=== PATIENT | female | born 1930 | race Caucasian/White ===

== ENCOUNTER 2017-03-31 20:13 | Inpatient (IN) | payer MEDICARE, OTHER ==
--- NOTE | 2017-03-31 20:22 | ERNOTE ---
Hip Pain HPI - Narrative Date of Service: 03/31/17 - General Time Seen by Provider: 03/31/17 20:14 - History of Present Illness Initial Comments: This is a 86-year-old female who comes to the emergency department complaining of left leg pain. The patient states early this afternoon she was walking into her front room in her house when she slipped on a rug that was on the linoleum. She fell to the ground striking her left hip. He reported severe significant pain. She was unable to get up. EMS was activated and arrived. She was taken to a local emergency department where evaluation demonstrated a left intertrochanteric fracture. The patient denies being on blood thinners. She is brought to our hospital for surgery. Denies numbness or tingling in the foot or extremity. Films were already done as were blood tests - Immun/Allergies/Home Medications Allergies/Adverse Reactions: Allergies Allergy/AdvReac Type Severity Reaction Status Date / Time No Known Allergies Allergy Unverified 03/31/17 20:30 Home Medications: Ambulatory Orders Medication Instructions Recorded Alprazolam [Xanax] 0.25 mg PO QID PRN 03/31/17 Aspirin 81 mg PO DAILY 03/31/17 Atorvastatin Calcium 20 mg PO HS 03/31/17 Chlorthalidone [Hygroton] 12.5 mg PO DAILY 03/31/17 Metoprolol Tartrate 50 mg PO HS 03/31/17 Metoprolol Tartrate 100 mg PO DAILY 03/31/17 glipiZIDE [Glipizide] 10 mg PO BID 03/31/17 metFORMIN HCL [Glucophage] 500 mg PO BIDWM 03/31/17 Review of Systems - Review of Systems Constitutional: Present: no symptoms reported EENTM: Present: no symptoms reported Respiratory: Present: no symptoms reported Cardiology: Present: no symptoms reported Gastrointestinal/Abdominal: Present: no symptoms reported Genitourinary: Present: no symptoms reported Musculoskeletal: Present: joint pain, other Skin: Present: no symptoms reported Neurological: Present: no symptoms reported - left hip Endocrine: Present: no symptoms reported Hematologic/Lymphatic: Present: no symptoms reported All Other Systems: All systems neg except as marked Pain Exam - Physical Exam General Appearance: Present: WD/WN, no apparent distress Eyes, Ears, Nose, Throat Exam: Present: normal ENT inspection, TMs normal, pharynx normal Neck Exam: Present: non-tender, full range of motion Cardiovascular/Respiratory: Present: regular rate, rhythm, no JVD, no respiratory distress Gastrointestinal/Abdominal: Present: normal bowel sounds Back Exam: Present: normal inspection, no vertebral tenderness Extremity Exam: Present: other - the left leg is shortened and externally rotated. Good distal pulse. 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 She has a simpler intertrochanteric fracture. The PA for orthopedics is here at the hospital. He is going to be writing orders to take the patient to the hospital bed. I will not add any orders here in the ER. - VITAL SIGNS Patient's Vital Signs:: I have reviewed the patient's vital signs. Departure - Departure Clinical Impression: Hip fracture Disposition: [facility] Condition: Fair
--- NOTE | 2017-03-31 21:29 | CONS ---
HPI - General Date of Service: 03/31/17 Narrative: Leyla is an 86 y/o female who presents today with left hip pain s/p a mechanical fall in her home this afternoon. Patient comes from [facility] ER with her family, where she was found to have a left intertrochanteric hip fracture. Pt notes that her family had come to visit her and as she tried to get to the door she fell. Pt had immediate pain and has been unable to ambulate since. Pt notes no other significant complaints. PMH includes breast cancer, hysterectomy, gall bladder removal. She did not hit her head when she fell, and had no loss of consciousness. Source: patient, family Exam Limitations: no limitations - History of Present Illness Allergies/Adverse Reactions: Allergies No Known Allergies Allergy (Unverified 03/31/17 20:30) Home Medications: Home Medications Medication Instructions Recorded Last Taken Alprazolam [Xanax] 0.25 mg PO QID PRN 03/31/17 Unknown Aspirin 81 mg PO DAILY 03/31/17 Unknown Atorvastatin Calcium 20 mg PO HS 03/31/17 Unknown Chlorthalidone [Hygroton] 12.5 mg PO DAILY 03/31/17 Unknown Metoprolol Tartrate 50 mg PO HS 03/31/17 Unknown Metoprolol Tartrate 100 mg PO DAILY 03/31/17 Unknown glipiZIDE [Glipizide] 10 mg PO BID 03/31/17 Unknown metFORMIN HCL [Glucophage] 500 mg PO BIDWM 03/31/17 Unknown - Patient's Past Medical History Patient History - Medical: Diabetes Type 2 Insulin Dependent, Osteoarthritis, Renal Disease, Other Patient History - Cardiac/Respiratory: Hypertension, Hyperlipidemia, Sleep Apnea Patient History - Cancer: Breast Patient History - Surgical Procedures: Cholecystectomy Patient History - Other: None - Social History Living Situations: home Psych History: No pertinent hx Smoking Status: Never smoker Alcohol Use: none Drug Use: none - Immunizations Immunizations Up to Date: Yes History of Influenza Vaccine: Yes Physical Examination - Exam Vital Signs: Vital Signs - Last Taken Temp 36.5 C 03/31/17 20:18 Pulse 60 03/31/17 20:54 Resp 18 03/31/17 20:54 BP 113/47 03/31/17 20:54 Pulse Ox 97 03/31/17 20:54 O2 Oxygen Delivery Method Room Air Constitutional: Present: Alert, Cooperative, No distress ENT Exam: Present: hard of hearing Respiratory: Present: no respiratory distress Extremity: Present: other - LLE--> ttp over greater trochanter, SILT, dorsal pedis pulse 2+, 5/5 FHL, EHL, PF, DF - Results and Findings: Narrative: - 86 y/o female left intertrochanteric femur fracture s/p mechanical fall in her home - Discussed conservative vs. surgical treatment of this procedure with her family including, but not limited to infection, bleeding, DVT, stroke, and continued pain. Family wishes to proceed with surgical treatment. Surgical treatment of cephalomedullary nailing of left interochanteric femur fracture on 04/01/[address] Abad. - NWB - NPO at midnight of 03/31 - pain control with IV morphine per medicine - DVT prophy: SCDs - Consent for surgery on 04/[address] Abad - Assessments/Findings (1) Hip fracture Problem: Acute Qualifiers: Encounter type: initial encounter Fracture type: closed Laterality: left Qualified Code(s): S72.002A - Fracture of unspecified part of neck of left femur, initial encounter for closed fracture
[2017-03-31] MEDS: MORPHINE SULFATE 2 MG/ML DISP.SYRIN IV PRN (22:11)
[2017-03-31] MEDS ORDERED: NORMAL SALINE 1,000 ML IV PRN (22:15)
--- NOTE | 2017-03-31 22:29 | HP ---
Chief Complaint - Chief Complaint Date of Service: 03/31/17 Time of Service: 22:16 Chief Complaint: left hip pain and unable to walk History of Present Illness: 86 years old WF adm to the hospital from ER with reports of left hip pain s/p mechanical fall at home. She was transferred from [facility] due to need for orthopedic service. On X-ray hip: Acute comminuted and mild- moderate displaced interrochanteric fracture of the proximal left femur. osteopenia with very mild OA changes at both hip. PMH osteopenia, osteoarthritis, hypertension, sleep apnea,diabetes, gout, lipoma, peripheral neuropathy and hyperlipidemia.Per daughter pt was going to the door when she slipped on the floor and hit her left hip. pt was unable to stand or get to the door so EMS was called and brought pt to outside facility. pt denies dizziness, headaches, head injury or LOC, No chest pain, palpitation, shortness of breath or weakness prior to and after incident. Pt lives alone therefore, Daughter considering [facility] for rehab upon discharge. Plan of care discussed with pt and daughter they verbalized understanding and agrees. - Patient's Past Medical History Patient History - Medical: Diabetes Type 2 Insulin Dependent, Osteoarthritis, Renal Disease, Other - osteopenia, gout, lipoma, [place], macular degenerative disease Patient History - Cardiac/Respiratory: Hypertension, Hyperlipidemia, Sleep Apnea - uses cpap Patient History - Cancer: Breast Patient History - Surgical Procedures: Cataracts, Cholecystectomy, Hysterectomy , Other - radical bilateral mastectomy with lymph nodes removal Patient History - Other: None - Family History Family History:: no untoward family reactions to anesthesia - Family History Mother Family History - Medical: , History Unknown Father Family History - Medical: , History Unknown - Social History Living Situations: alone Psych History: No pertinent hx Smoking Status: Never smoker Alcohol Use: none Drug Use: none - Immunizations Immunizations Up to Date: Yes History of Influenza Vaccine: Yes Review Of Systems (GEN) - Review of Systems Generalized/Overall Review: Present: No Symptoms Reported EENTM: Present: No Symptoms Reported Respiratory: Present: No Symptoms Reported Cardiac: Present: No Symptoms Reported Abdominal: Present: No Symptoms Reported Genitourinary: Present: No Symptoms Reported Musculoskeletal: Present: Joint Pain - left hip, Joint Swelling Neurological: Present: Anxiety Skin: Present: No Symptoms Reported Endocrine: Present: No Symptoms Reported Allergies/Adverse Reactions: Allergies Allergy/AdvReac Type Severity Reaction Status Date / Time No Known Allergies Allergy Unverified 03/31/17 20:30 Home Medications: HOME MEDICATIONS Alprazolam [Xanax] 0.25 mg PO QID PRN 03/31/17 [Last Taken Unknown] Aspirin 81 mg PO DAILY 03/31/17 [Last Taken Unknown] Atorvastatin Calcium 20 mg PO HS 03/31/17 [Last Taken Unknown] Chlorthalidone [Hygroton] 12.5 mg PO DAILY 03/31/17 [Last Taken Unknown] Metoprolol Tartrate 50 mg PO HS 03/31/17 [Last Taken Unknown] Metoprolol Tartrate 100 mg PO DAILY 03/31/17 [Last Taken Unknown] glipiZIDE [Glipizide] 10 mg PO BID 03/31/17 [Last Taken Unknown] metFORMIN HCL [Glucophage] 500 mg PO BIDWM 03/31/17 [Last Taken Unknown] Exam - Exam Vital Signs: Vital Signs - Last Taken Temp 36.5 C 03/31/17 20:18 Pulse 62 03/31/17 21:18 Resp 18 03/31/17 21:18 BP 113/56 03/31/17 21:18 Pulse Ox 96 03/31/17 21:18 Constitutional: Present: Alert, Oriented x3, Cooperative, No distress ENT Exam: Present: hard of hearing Eye Exam: bilateral eye: normal inspection Neck: Present: full range of motion Back Exam: Present: normal inspection Breasts: Present: Other - bilateral mastectomy Respiratory: Present: chest non-tender, lungs clear, normal breath sounds, no respiratory distress Cardiovascular/Chest: Present: normal peripheral pulses, regular rate, rhythm, no chest tenderness, no edema Peripheral Pulses: dorsalis-pedis (R): 3+, dorsalis-pedis (L): 3+ Abdomen: Present: Normal bowel sounds, soft, nontender, nondistended, no rebound tenderness /Rectal: Present: Exam deferred Extremity: Present: lower extremity edema - Left hip, limited ROM. left leg shorter than right Skin Exam: Present: normal color, warm/dry, no cyanosis Neurologic: Present: alert, oriented x 3 Appearance: Present: appropriate appearance, appropriate insight Eye contact: Present: cooperative, good eye contact Thoughts: Present: normal thought pattern Diagnostic Studies: X-ray hip: Acute comminuted and mild- moderate displaced interrochanteric fracture of the proximal left femur. osteopenia with very mild OA changes at both hip. Assessment/Plan - Narrative Narrative: Hip fracture Seen on X-ray: X-ray hip: Acute comminuted and mild- moderate displaced interrochanteric fracture of the proximal left femur. osteopenia with very mild OA changes at both hip. Ortho consulted and following Morphine and Ice pack for pain control VTE ppx : SCd and ortho for further management post-op Thompson to gravity due to prolong immobilization See paper records for pre-op labs, EKG and CXR- results noted and are stable Keep NPO after midnight for surgery tomorrow pt medically appropriate for planned procedure Hypertension- stable On adm BP 112/56 Continue with home medications Monitor VS Q shift and PRN as indicated Diabetes Accu-check AC+HS and low dose sliding scale insulin may resume home medications Consistent carb diet Sleep apnea May use own home cpap Renal insufficient On adm Bun/ cre 26/1.2 Continue with gentle hydration Avoid nephrotoxic agents Will hold diuretic and metformin for now Monitor BMP in AM Anemia- stable On adm hgb/ hct--> 10.9/32.1 monitor post-op Stable chronic conditions Gout Lipoma Hyperlipidemia osteoarthritis Code status: GI ppx: VTE ppx:SCD and ortho for post-op management Time 35 minutes and case discussed with Dr Gilbert - Assessment/Plan (1) Hip fracture Problem: Acute Qualifiers: Encounter type: initial encounter Fracture type: closed Laterality: left Qualified Code(s): S72.002A - Fracture of unspecified part of neck of left femur, initial encounter for closed fracture (2) Hypertension Problem: Chronic (3) Sleep apnea Problem: Chronic
[2017-03-31] MEDS ORDERED: glipiZIDE 5 MG TABLET PO SCH (23:00)
[2017-03-31] MEDS ORDERED: MORPHINE SULFATE 2 MG/ML DISP.SYRIN IV STA (23:09)
[2017-04-01] MEDS: MORPHINE SULFATE 2 MG/ML DISP.SYRIN IV PRN ×2 (03:21→13:17)
[2017-04-01] MEDS ORDERED: METOPROLOL TARTRATE 100 MG TABLET ONE (07:05)
[2017-04-01 07:13] LABS: Anion Gap 12.4 mmol/L (6.8-13.8); BUN/Creatinine Ratio 19.5 (9.0-21.6); Calcium * 8.7 mg/dL (7.9-10.9); Carbon Dioxide 27.8 mmol/L (24-32.6); Estimated Creat Clear 30.1; Potassium 4.2 mmol/L (3.4-4.6)
--- NOTE | 2017-04-01 07:45 | PN ---
Subjective - Date and Time Seen Date: 04/01/17 Subjective Narrative: Resting comfortably in bed this am, pain controlled. Objective - Vitals Vitals: Last Vital Signs Temp 36.6 C 04/01/17 07:16 Pulse 63 04/01/17 07:23 Resp 18 04/01/17 07:16 BP 143/56 04/01/17 07:23 Pulse Ox 98 04/01/17 07:16 - Abnormal Lab Findings Abnormal Lab Findings: Abnormal Lab Results 04/01/17 Range/Units 06:45 BUN 26 H (3-23) mg/dL Est GFR (Non-Af Amer) 40 L (60-130) mL/min Random Glucose 126 H (70-110) mg/dL - Exam Exam Narrative: Gen: A&Ox3, NAD CV: RRR Resp: breathing nonlabored on RA MSK: LLE--> shortened and externally rotated, able to flex and extend all toes, SILT, cap refill brisk Radiology: Outside plain films demonstrate a displaced intertrochanteric femur fracture. Cauti Physician Documentation - Urinary Catheter Management Urethral (Mera) Date of Insertion: 03/31/17 Assessment/Plan Plan Narrative: 86 yo F w/ L intertrochanteric femur fracture. - Discussed treatment options with the patient and family including non- operative treatment with bedrest and pain control vs operative fixation. I discussed the risks and benefits of both treatments and the expected mortality risk reduction with surgery. After discussion, they wish to proceed with operative fixation. Risks discussed include, but are not limited to, infection , bleeding, neurovascular injury, malunion/nonunion, implant failure, persistent pain, limp, risks with anesthesia, and . - Plan for closed reduction and cephalomedullary fixation of L IT femur fracture - NPO, mera, pre-op Ancef - Continue Medicine co-management
[2017-04-01] MEDS ORDERED: NORMAL SALINE 1,000 ML IV ONE (07:55)
[2017-04-01] MEDS ORDERED: RINGER'S SOLUTION,LACTATED 1,000 ML IV ONE (08:15)
[2017-04-01] MEDS ORDERED: METOPROLOL TARTRATE 50 MG TABLET PO SCH (09:00)
[2017-04-01] MEDS ORDERED: PROMETHAZINE HCL 5 MG in DEXTROSE 5 % IN WATER 50 ML IV PRN ×2 (09:38)
[2017-04-01] MEDS ORDERED: MAGNESIUM HYDROXIDE 30 ML UDC PO PRN (09:38)
[2017-04-01] MEDS ORDERED: MAG HYDROX/ALUMINUM HYD/SIMETH 30 ML UDC PO PRN (09:38)
[2017-04-01] MEDS ORDERED: HYDROcodone/ACETAMINOPHEN 1 EACH TABLET PO PRN (09:38)
[2017-04-01] MEDS ORDERED: ONDANSETRON HCL/PF 2 MG/ML VIAL IV PRN (09:38)
[2017-04-01] MEDS ORDERED: MORPHINE SULFATE 2 MG/ML DISP.SYRIN IV PRN (09:38)
[2017-04-01] MEDS ORDERED: ACETAMINOPHEN 500 MG TABLET PO PRN (09:38)
--- NOTE | 2017-04-01 09:45 | OR ---
Operative Report - Dictated Report Narrative: Date: 04/01/2017 Surgeon: Sae Abad M.D. Hand Turner: Kevin Holt PA-C Preoperative diagnosis: Left Intertrochanteric femur fracture Postoperative diagnosis: Left Intertrochanteric femur fracture Operations and procedures: 1. Closed reduction, cephalo-medullary fixation left intertrochanteric femur fracture 2. Intraoperative interpretation of radiographs Anesthesia: Spinal Specimens: None Estimated blood loss: 250 Milliliters Retained implants: [employer] Trigen InterTAN 130 degree size 11.5 mm by 18 centimeter nail with 100 millimeter lag screw and 95 millimeter compression screw, with distal locking screw Complications: None Indications for procedure: Leyla is a 86-year-old female who lives independently and who injured the left leg after a trip and fall from standing height in her home. They were admitted to the hospital after being evaluated in the emergency department. Once the medical provider felt that they were stable for surgical treatment, the risks and benefits alternatives were discussed. The risks of , blood clots, bleeding, infection, nerve/tendon/blood vessel injury, malunion, nonunion , failure of implants, painful implants, arthrosis, and need for additional procedures were discussed. The extremity was marked and consent was obtained on the floor. Procedure: After marking the operative extremity on the floor, the patient was taken to the operating room. A timeout was performed. IV antibiotics consisting of 2 g of Ancef were administered. A spinal anesthetic was induced by anesthesia, and the patient was then placed onto a fracture table with a well-padded perineal post. The non-operative leg was placed in a well-padded well leg weber in lithotomy position with an SCD on the leg. The operative leg was placed in a well-padded traction boot. Longitudinal traction, internal rotation, flexion, and adduction were utilized in order to reduce the fracture. Preliminary images were attained utilizing C-arm in both the AP and lateral views. This confirmed that we had obtained adequate visualization of the fracture as well as reduction. Next the hip was then prepped and draped in a standard sterile fashion. Next, the guidewire was placed percutaneously proximal to the greater trochanter to nima a starting point at the tip of the greater trochanter centered on the lateral view. This was advanced down to the level below the lesser trochanter. A scalpel was utilized to dissect down to the greater trochanter in order to lace the soft tissue protector down to bone. The entry reamer was then advanced down the proximal femur to the level of the lesser trochanter. The above nail was then selected and impacted into place. The outrigger was utilized in order to confirm the appropriate depth of the nail. Using the alignment device on the outrigger, a herminia incision was made over the lateral femur. Sharp dissection was carried through the iliotibial band down to the proximal femur. The guidewire was was placed into the femoral head in a center center position on AP and lateral views. A tip apex distance less than 25 mm combined was obtained. Once we felt that we had placed the guidewire in the appropriate position, it was measured. Next the compression screw entry drill was advanced through the lateral cortex. This was then drilled down to the appropriate depth for the compression screw, again confirming that we are within the confines the bone. The derotational bar was then placed and the lag screw was drilled to the appropriate depth. The lag screw was then secured in place ensuring that we were within the confines of the bone. The compression screw was then inserted allowing for compression while releasing the traction on the leg. Using C-arm this was visualized to allow for compression across the fracture site. Once it was felt we had adequately stabilized the intertrochanteric fracture, the distal interlocking screw was placed in a static position confirmed to be the appropriate length and within the nail on both AP and lateral views. The nail was secured allowing for controlled compression and the outrigger was removed. The wounds were then thoroughly irrigated. Final images were obtained. The hip was placed through range of motion and showed no crepitance. The deep fascia was closed with 0 Vicryl, the subcutaneous tissue with 3-0 Vicryl, and the skin was closed with maximino. Sterile dressings of Xeroform, 4 x 4s, and tegaderm were applied. All sponge, sharp, and instrument counts were correct prior to closing the wounds. The patient was then awoken and transferred to the postanesthesia care unit in stable condition.
[2017-04-01] MEDS: INSULIN LISPRO 100 UNITS/ML VIAL SC SCH ×4 (10:35→20:06)
[2017-04-01] MEDS: glipiZIDE 10 MG TABLET PO SCH ×2 (10:45→20:00)
[2017-04-01] MEDS: NORMAL SALINE 1,000 ML IV PRN ×2 (11:33→21:43)
[2017-04-01] MEDS: ceFAZolin SODIUM 1 GM in DEXTROSE 5 % IN WATER 100 ML IV SCH ×6 (11:57→22:49)
[2017-04-01 14:26] LABS: Hemoglobin 7.9 gm/dL (12.5-16.0)
[2017-04-01 14:27] LABS: Hematocrit 23.7 % (37.0-47.0)
[2017-04-01] MEDS: HYDROcodone/ACETAMINOPHEN 1 EACH TABLET PO PRN (18:52)
[2017-04-01] MEDS: ALPRAZolam 0.25 MG TABLET PO PRN (19:06)
[2017-04-01] MEDS: SENNOSIDES/DOCUSATE SODIUM 1 TAB TABLET PO SCH (20:00)
[2017-04-01] MEDS: METOPROLOL TARTRATE 50 MG TABLET PO SCH (20:00)
[2017-04-01] MEDS ORDERED: ATORVASTATIN CALCIUM 40 MG TABLET PO SCH (21:00)
[2017-04-02] MEDS: HYDROcodone/ACETAMINOPHEN 1 EACH TABLET PO PRN ×3 (00:55→17:33)
[2017-04-02 05:57] LABS: Mean Cell Volume 91.4 fl (78-100); Mean Corpuscular Hgb Conc 32.9 g/dl (32-36); Mean Platelet Volume 10.4 fl (6.0-9.5); Platelet Count 86 K/mm3 (150-450); Red Blood Count 2.33 M/mm3 (4.2-5.4); Red Cell Distribution Width 13.3 % (11.5-14.0); White Blood Count 5.5 K/mm3 (4.0-10.5)
[2017-04-02 06:02] LABS: Hematocrit 21.3 % (37.0-47.0)
[2017-04-02 06:05] LABS: Anion Gap 9.4 mmol/L (6.8-13.8); BUN/Creatinine Ratio 18.8 (9.0-21.6); Calcium * 8.4 mg/dL (7.9-10.9); Carbon Dioxide 28.2 mmol/L (24-32.6); Estimated Creat Clear 30.1; Potassium 3.6 mmol/L (3.4-4.6)
[2017-04-02] MEDS ORDERED: diphenhydrAMINE HCL 50 MG/ML VIAL IV PRN (06:23)
[2017-04-02] MEDS ORDERED: FUROSEMIDE 10 MG/ML VIAL IV PRN (06:23)
[2017-04-02] MEDS ORDERED: ACETAMINOPHEN 325 MG TABLET PO PRN (06:23)
[2017-04-02] MEDS: INSULIN LISPRO 100 UNITS/ML VIAL SC SCH ×4 (08:29→20:40)
[2017-04-02] MEDS: FERROUS SULFATE 325 MG TABLET PO SCH ×2 (08:30→17:34)
[2017-04-02] MEDS: METOPROLOL TARTRATE 100 MG TABLET PO SCH (08:30)
[2017-04-02] MEDS: glipiZIDE 10 MG TABLET PO SCH ×2 (08:30→17:34)
--- NOTE | 2017-04-02 09:08 | PN ---
Subjective - Date and Time Seen Date: 04/02/17 Time: 08:30 Subjective Narrative: No acute events overnight. Pt has been transferring with assistance. She does have mild-moderate pain in her left hip. Objective - Vitals Vitals: Last Vital Signs Temp 37.2 C 04/02/17 08:16 Pulse 65 04/02/17 08:30 Resp 18 04/02/17 08:16 BP 106/43 04/02/17 08:30 Pulse Ox 100 04/02/17 08:16 - Abnormal Lab Findings Abnormal Lab Findings: Abnormal Lab Results 04/01/17 04/02/17 04/02/17 Range/Units 14:11 05:30 05:30 RBC 2.33 L (4.2-5.4) M/mm3 Hgb 7.9 L* 7.0 L* (12.5-16.0) gm/dL Hct 23.7 L* 21.3 L* (37.0-47.0) % Plt Count 86 L (150-450) K/mm3 MPV 10.4 H (6.0-9.5) fl BUN 25 H (3-23) mg/dL Est GFR (Non-Af Amer) 40 L (60-130) mL/min Random Glucose 120 H (70-110) mg/dL Crossmatch 04/02/17 Range/Units 06:23 RBC (4.2-5.4) M/mm3 Hgb (12.5-16.0) gm/dL Hct (37.0-47.0) % Plt Count (150-450) K/mm3 MPV (6.0-9.5) fl BUN (3-23) mg/dL Est GFR (Non-Af Amer) (60-130) mL/min Random Glucose (70-110) mg/dL Crossmatch See Detail - Exam Constitutional: Present: Alert, Cooperative, No distress Respiratory: Present: no respiratory distress Extremity: Present: other - LLE--> SILT, dorsal pedis pulse 2+, 5/5 EHL/FHL/PF/ DF, bandages c/d/i, ttp over greater trochanter of femur Cauti Physician Documentation - Urinary Catheter Management Urethral (Thompson) Date of Insertion: 03/31/17 Assessment/Plan Plan Narrative: - 86 y/o female s/p closed reduction with cephalomedullary nailing of left intertrochanteric femur fracture post-op day #1 - WBAT - PT/OT progress as tolerated - PO diet as tolerated - Pain medication with PO medication as tolerated - Hgb 7.0, medicine transfusing 2 units - VTE ppx: SCDs, Jeff hosdenise, lovenox - DM management per medicine - Problems/Diagnosis (1) Hip fracture Problem: Acute Qualifiers: Encounter type: initial encounter Fracture type: closed Laterality: left Qualified Code(s): S72.002A - Fracture of unspecified part of neck of left femur, initial encounter for closed fracture
[2017-04-02] MEDS: ALPRAZolam 0.25 MG TABLET PO PRN (14:15)
--- NOTE | 2017-04-02 14:24 | OR ---
Anesthesia Procedure Note - Anesthesia Procedure Note Narrative: Vital Signs - Last Taken Temp 37.2 C 04/02/17 14:07 Pulse 57 L 04/02/17 14:07 Resp 16 04/02/17 14:07 BP 123/43 04/02/17 14:07 Pulse Ox 100 04/02/17 14:07 O2 Oxygen Delivery Method Nasal Cannula 04/02/17 14:23 ANESTHESIA PROCEDURE NOTE Date of procedure: 04/02/2017. Time of procedure: 1415. Performed by: Peewee Delgado CRNA Manager Building: None . Preprocedure diagnosis: Difficult IV access. Status post left hip pinning.. Post procedure diagnosis: Same. Procedure: IV start Indications: Difficult IV access. Findings: 22-gauge Angiocath IV was started in patient's left arm. EBL: Minimal. Fluids: N/A. Specimen: N/A. Post procedure condition: The patient tolerated the procedure well. No complications were noted. Thank you for this consultation Peewee Delgado CRNA
[2017-04-02 15:33] LABS: Hematocrit 27.4 % (37.0-47.0); Hemoglobin 9.3 gm/dL (12.5-16.0)
[2017-04-02] MEDS: ENOXAPARIN SODIUM 40 MG/0.4 ML SYRG SC SCH (17:34)
[2017-04-02] MEDS: SENNOSIDES/DOCUSATE SODIUM 1 TAB TABLET PO SCH (20:41)
[2017-04-02] MEDS: METOPROLOL TARTRATE 50 MG TABLET PO SCH (20:41)
[2017-04-02] MEDS: ROSUVASTATIN CALCIUM 10 MG TABLET PO SCH (20:41)
[2017-04-03] MEDS: HYDROcodone/ACETAMINOPHEN 1 EACH TABLET PO PRN ×3 (02:43→19:51)
[2017-04-03 05:53] LABS: Hematocrit 25.1 % (37.0-47.0); Hemoglobin 8.5 gm/dL (12.5-16.0); Mean Cell Volume 86.9 fl (78-100); Mean Corpuscular Hemoglobin 29.4 pg (27-31); Mean Corpuscular Hgb Conc 33.9 g/dl (32-36); Mean Platelet Volume 10.6 fl (6.0-9.5); Platelet Count 88 K/mm3 (150-450); Red Blood Count 2.89 M/mm3 (4.2-5.4); Red Cell Distribution Width 14.9 % (11.5-14.0); White Blood Count 6.5 K/mm3 (4.0-10.5)
[2017-04-03] MEDS: INSULIN LISPRO 100 UNITS/ML VIAL SC SCH ×4 (06:53→20:38)
[2017-04-03] MEDS: glipiZIDE 10 MG TABLET PO SCH ×2 (06:54→17:01)
[2017-04-03 06:59] LABS: Anion Gap 11.5 mmol/L (6.8-13.8); Calcium * 8.6 mg/dL (7.9-10.9); Estimated Creat Clear 30.8; Potassium 3.5 mmol/L (3.4-4.6)
[2017-04-03] MEDS: METOPROLOL TARTRATE 100 MG TABLET PO SCH (09:33)
[2017-04-03] MEDS: FERROUS SULFATE 325 MG TABLET PO SCH ×2 (09:33→17:00)
[2017-04-03] MEDS: ENOXAPARIN SODIUM 40 MG/0.4 ML SYRG SC SCH (09:36)
--- NOTE | 2017-04-03 09:51 | PN ---
Subjective - Date and Time Seen Date: 04/03/17 Time: 07:45 Subjective Narrative: No acute events. Pt still have mild-moderate pain with WB. Pt has been tolerating PO diet. Objective - Vitals Vitals: Last Vital Signs Temp 36.8 C 04/03/17 02:00 Pulse 60 04/03/17 09:33 Resp 18 04/03/17 04:05 BP 133/70 04/03/17 09:33 Pulse Ox 93 04/03/17 04:05 - Abnormal Lab Findings Abnormal Lab Findings: Abnormal Lab Results 04/02/17 04/02/17 04/03/17 Range/Units 06:23 15:31 05:30 RBC 2.89 L (4.2-5.4) M/mm3 Hgb 9.3 L 8.5 L (12.5-16.0) gm/dL Hct 27.4 L 25.1 L (37.0-47.0) % RDW 14.9 H (11.5-14.0) % Plt Count 88 L (150-450) K/mm3 MPV 10.6 H (6.0-9.5) fl BUN (3-23) mg/dL Est GFR (Non-Af Amer) (60-130) mL/min Random Glucose (70-110) mg/dL Crossmatch See Detail 04/03/17 Range/Units 05:30 RBC (4.2-5.4) M/mm3 Hgb (12.5-16.0) gm/dL Hct (37.0-47.0) % RDW (11.5-14.0) % Plt Count (150-450) K/mm3 MPV (6.0-9.5) fl BUN 26 H (3-23) mg/dL Est GFR (Non-Af Amer) 41 L (60-130) mL/min Random Glucose 122 H (70-110) mg/dL Crossmatch - Exam Constitutional: Present: Alert, Cooperative, No distress Respiratory: Present: no respiratory distress Extremity: Present: other - LLE--> ttp over greater trochanter, mild ecchymosis and edema, SILT, dorsal pedis 2+, 5/5 FHL/EHL/PF/DF Cauti Physician Documentation - Urinary Catheter Management Urethral (Thompson) Date of Insertion: 03/31/17 Date of Removal: 04/02/17 Time of Removal: 09:00 Assessment/Plan Plan Narrative: - 86 y/o female s/p closed reduction with cephalomedullary nailing of left intertrochanteric femur fracture post-op day #2 - WBAT - PT/OT progress as tolerated - PO diet as tolerated - Pain medication with PO medication as tolerated - Hgb 8.5, medicine transfused 2 units on 04/02, continue to monitor - VTE ppx: SCDs, krystal Contreras - DM management per medicine - Problems/Diagnosis (1) Hip fracture Problem: Acute Qualifiers: Encounter type: initial encounter Fracture type: closed Laterality: left Qualified Code(s): S72.002A - Fracture of unspecified part of neck of left femur, initial encounter for closed fracture
--- NOTE | 2017-04-03 12:50 | PN ---
Subjective - Date and Time Seen Date: 04/03/17 Time: 12:48 Subjective Narrative: Patient seen and examined at bedside. No acute issues overnight. Patient denies any new issues or concerns this AM. Objective - Review of Systems Generalized/Overall Review: Reports: Weakness - generalized, Fatigue EENTM: Reports: No Symptoms Reported Respiratory: Reports: No Symptoms Reported Cardiac: Reports: No Symptoms Reported Abdominal: Reports: Nausea - which the patient believes is secondary to her pain medication Genitourinary Symptoms: Reports: No Symptoms Reported Musculoskeletal Complaints: Reports: Joint Pain Neurological: Reports: No Symptoms Reported Skin: Reports: No Symptoms Reported Endocrine: Reports: No Symptoms Reported Misc: All systems neg except as marked - Vitals Vitals: Last Vital Signs Temp 37.2 C 04/03/17 11:00 Pulse 52 L 04/03/17 11:00 Resp 18 04/03/17 11:00 BP 112/48 04/03/17 11:00 Pulse Ox 94 04/03/17 11:00 - Abnormal Lab Findings Abnormal Lab Findings: Abnormal Lab Results 04/02/17 04/02/17 04/03/17 Range/Units 06:23 15:31 05:30 RBC 2.89 L (4.2-5.4) M/mm3 Hgb 9.3 L 8.5 L (12.5-16.0) gm/dL Hct 27.4 L 25.1 L (37.0-47.0) % RDW 14.9 H (11.5-14.0) % Plt Count 88 L (150-450) K/mm3 MPV 10.6 H (6.0-9.5) fl BUN (3-23) mg/dL Est GFR (Non-Af Amer) (60-130) mL/min Random Glucose (70-110) mg/dL Crossmatch See Detail 04/03/17 Range/Units 05:30 RBC (4.2-5.4) M/mm3 Hgb (12.5-16.0) gm/dL Hct (37.0-47.0) % RDW (11.5-14.0) % Plt Count (150-450) K/mm3 MPV (6.0-9.5) fl BUN 26 H (3-23) mg/dL Est GFR (Non-Af Amer) 41 L (60-130) mL/min Random Glucose 122 H (70-110) mg/dL Crossmatch - Exam Constitutional: Present: Alert, Oriented x3, Cooperative, No distress, Elderly ENT Exam: Present: hard of hearing, moist mucous membranes Respiratory: Present: lungs clear, normal breath sounds, no respiratory distress , no accessory muscle use Cardiovascular/Chest: Present: regular rate, rhythm, edema Abdomen: Present: soft, nontender, nondistended, hypoactive Extremity: Present: other - s/p left femur fracture repair with dressings in place Skin Exam: Present: warm/dry Neurologic: Present: normal mood/affect, oriented x 3 Appearance: Present: appropriate appearance Eye contact: Present: cooperative, good eye contact Thoughts: Present: no apparent hallucination Cauti Physician Documentation - Urinary Catheter Management Urethral (Thompson) Date of Insertion: 03/31/17 Date of Removal: 04/02/17 Time of Removal: 09:00 Assessment/Plan Plan Narrative: Continue to work with PT/OT. Plan for discharge to SNF at [facility] in [place] tomorrow (04/04/2017) for ongoing therapy. Continue current cares per ortho. Patient is medically stable for discharge tomorrow. - Problems/Diagnosis (1) Closed intertrochanteric fracture of left hip Problem: Acute (2) Acute blood loss as cause of postoperative anemia Problem: Acute
--- NOTE | 2017-04-03 12:56 | PN ---
Subjective - Date and Time Seen Date: 04/02/17 Time: 12:54 Subjective Narrative: Patient seen and examined at bedside. No acute issues overnight. Patient denies any new issues or concerns this AM. Objective - Review of Systems Generalized/Overall Review: Reports: Weakness, Fatigue EENTM: Reports: No Symptoms Reported Respiratory: Reports: No Symptoms Reported Cardiac: Reports: No Symptoms Reported Abdominal: Reports: No Symptoms Reported Genitourinary Symptoms: Reports: No Symptoms Reported Musculoskeletal Complaints: Reports: Joint Pain Neurological: Reports: Anxiety Skin: Reports: No Symptoms Reported Endocrine: Reports: No Symptoms Reported Misc: All systems neg except as marked - Vitals Vitals: Last Vital Signs Temp 37.2 C 04/03/17 11:00 Pulse 52 L 04/03/17 11:00 Resp 18 04/03/17 11:00 BP 112/48 04/03/17 11:00 Pulse Ox 94 04/03/17 11:00 - Abnormal Lab Findings Abnormal Lab Findings: Abnormal Lab Results 04/02/17 04/02/17 04/03/17 Range/Units 06:23 15:31 05:30 RBC 2.89 L (4.2-5.4) M/mm3 Hgb 9.3 L 8.5 L (12.5-16.0) gm/dL Hct 27.4 L 25.1 L (37.0-47.0) % RDW 14.9 H (11.5-14.0) % Plt Count 88 L (150-450) K/mm3 MPV 10.6 H (6.0-9.5) fl BUN (3-23) mg/dL Est GFR (Non-Af Amer) (60-130) mL/min Random Glucose (70-110) mg/dL Crossmatch See Detail 04/03/17 Range/Units 05:30 RBC (4.2-5.4) M/mm3 Hgb (12.5-16.0) gm/dL Hct (37.0-47.0) % RDW (11.5-14.0) % Plt Count (150-450) K/mm3 MPV (6.0-9.5) fl BUN 26 H (3-23) mg/dL Est GFR (Non-Af Amer) 41 L (60-130) mL/min Random Glucose 122 H (70-110) mg/dL Crossmatch - Exam Constitutional: Present: Alert, Oriented x3, Cooperative, No distress, Elderly ENT Exam: Present: hard of hearing, moist mucous membranes Respiratory: Present: lungs clear, normal breath sounds, no respiratory distress , no accessory muscle use Cardiovascular/Chest: Present: regular rate, rhythm, edema Abdomen: Present: soft, nontender, nondistended, hypoactive Extremity: Present: other - s/p left hip surgery with dressings in place Neurologic: Present: alert, normal mood/affect Appearance: Present: appropriate appearance Eye contact: Present: cooperative, good eye contact Thoughts: Present: no apparent hallucination Cauti Physician Documentation - Urinary Catheter Management Urethral (Thompson) Date of Insertion: 03/31/17 Date of Removal: 04/02/17 Time of Removal: 09:00 Assessment/Plan Plan Narrative: Transfuse 2 units PRBCs today. No signs of active bleeding at this time. Continue to monitor and recheck hemogram in the AM. Continue PT/OT evaluation and treatment. Plan for discharge to SNF within then next 1-2 days. - Problems/Diagnosis (1) Closed intertrochanteric fracture of left hip Problem: Acute (2) Acute blood loss as cause of postoperative anemia Problem: Acute
--- NOTE | 2017-04-03 12:58 | PN ---
Subjective - Date and Time Seen Date: 04/01/17 Time: 12:56 Subjective Narrative: Patient seen and examined at bedside. No acute issues overnight. Pain adequately controlled at this time. Patient's only complaint is that she is cold. Objective - Review of Systems Generalized/Overall Review: Reports: Weakness, Fatigue EENTM: Reports: No Symptoms Reported Respiratory: Reports: No Symptoms Reported Cardiac: Reports: No Symptoms Reported Abdominal: Reports: No Symptoms Reported Genitourinary Symptoms: Reports: No Symptoms Reported Musculoskeletal Complaints: Reports: Joint Pain Neurological: Reports: Anxiety Skin: Reports: No Symptoms Reported Endocrine: Reports: Intolerance to Cold Misc: All systems neg except as marked - Vitals Vitals: Last Vital Signs Temp 37.2 C 04/03/17 11:00 Pulse 52 L 04/03/17 11:00 Resp 18 04/03/17 11:00 BP 112/48 04/03/17 11:00 Pulse Ox 94 04/03/17 11:00 - Abnormal Lab Findings Abnormal Lab Findings: Abnormal Lab Results 04/02/17 04/02/17 04/03/17 Range/Units 06:23 15:31 05:30 RBC 2.89 L (4.2-5.4) M/mm3 Hgb 9.3 L 8.5 L (12.5-16.0) gm/dL Hct 27.4 L 25.1 L (37.0-47.0) % RDW 14.9 H (11.5-14.0) % Plt Count 88 L (150-450) K/mm3 MPV 10.6 H (6.0-9.5) fl BUN (3-23) mg/dL Est GFR (Non-Af Amer) (60-130) mL/min Random Glucose (70-110) mg/dL Crossmatch See Detail 04/03/17 Range/Units 05:30 RBC (4.2-5.4) M/mm3 Hgb (12.5-16.0) gm/dL Hct (37.0-47.0) % RDW (11.5-14.0) % Plt Count (150-450) K/mm3 MPV (6.0-9.5) fl BUN 26 H (3-23) mg/dL Est GFR (Non-Af Amer) 41 L (60-130) mL/min Random Glucose 122 H (70-110) mg/dL Crossmatch - Exam Constitutional: Present: Alert, Oriented x3, Cooperative, No distress, Elderly ENT Exam: Present: hard of hearing, moist mucous membranes Respiratory: Present: lungs clear, normal breath sounds, no respiratory distress , no accessory muscle use Cardiovascular/Chest: Present: regular rate, rhythm, edema Abdomen: Present: soft, nontender, nondistended, hypoactive Extremity: Present: lower extremity edema, other - s/p left hip surgery with dressings in place Skin Exam: Present: warm/dry Neurologic: Present: alert, normal mood/affect Appearance: Present: appropriate appearance Eye contact: Present: cooperative, good eye contact Thoughts: Present: no apparent hallucination Cauti Physician Documentation - Urinary Catheter Management Urethral (Thompson) Date of Insertion: 03/31/17 Date of Removal: 04/02/17 Time of Removal: 09:00 Assessment/Plan Plan Narrative: Continue current cares per ortho. PT/OT evaluation and treatment. Patient will need SNF placement at discharge so we will have our outpatient case manager meet with the family tomorrow to discuss placement. - Problems/Diagnosis (1) Closed intertrochanteric fracture of left hip Problem: Acute (2) Acute blood loss as cause of postoperative anemia Problem: Acute
[2017-04-03] MEDS: ROSUVASTATIN CALCIUM 10 MG TABLET PO SCH (20:17)
[2017-04-03] MEDS: METOPROLOL TARTRATE 50 MG TABLET PO SCH (20:18)
[2017-04-03] MEDS: SENNOSIDES/DOCUSATE SODIUM 1 TAB TABLET PO SCH (20:29)
[2017-04-04] MEDS: HYDROcodone/ACETAMINOPHEN 1 EACH TABLET PO PRN ×2 (03:51→10:03)
[2017-04-04 05:55] LABS: Hematocrit 25.9 % (37.0-47.0); Hemoglobin 8.7 gm/dL (12.5-16.0); Mean Cell Volume 87.8 fl (78-100); Mean Corpuscular Hemoglobin 29.5 pg (27-31); Mean Corpuscular Hgb Conc 33.6 g/dl (32-36); Mean Platelet Volume 10.1 fl (6.0-9.5); Platelet Count 99 K/mm3 (150-450); Red Blood Count 2.95 M/mm3 (4.2-5.4); Red Cell Distribution Width 14.5 % (11.5-14.0); White Blood Count 5.7 K/mm3 (4.0-10.5)
[2017-04-04 06:17] LABS: Anion Gap 11.6 mmol/L (6.8-13.8); BUN/Creatinine Ratio 23.7 (9.0-21.6); Calcium * 8.8 mg/dL (7.9-10.9); Carbon Dioxide 27.9 mmol/L (24-32.6); Estimated Creat Clear 33.9; Potassium 3.5 mmol/L (3.4-4.6)
[2017-04-04 07:11] VITALS: BP 121/82
[2017-04-04] MEDS: INSULIN LISPRO 100 UNITS/ML VIAL SC SCH (07:31)
[2017-04-04] MEDS: glipiZIDE 10 MG TABLET PO SCH (07:44)
[2017-04-04] MEDS: FERROUS SULFATE 325 MG TABLET PO SCH (08:34)
[2017-04-04] MEDS: ENOXAPARIN SODIUM 40 MG/0.4 ML SYRG SC SCH (08:34)
[2017-04-04] MEDS: METOPROLOL TARTRATE 100 MG TABLET PO SCH (08:34)
--- NOTE | 2017-04-04 08:55 | PN ---
Progess Note - Interim Narrative: 04/04/17 08:51 Pt reports no acute events. Still have mild-moderate pain with WB activity. Worked with PT/OT to walk with walker. Pt has been tolerating PO diet, using PO pain medication, pain is well controlled. Exam reveals ttp over left femur, SILT , dorsal pedis pulse 2+, 5/5 EHL/FHL/PF/DF, bandages changed minimal serosangenous drainage on bandages, no erythema around incisions. - 86 y/o female s/p closed reduction with cephalomedullary nailing of left intertrochanteric femur fracture post-op day #3 - D/c to [place] on 04/04/17 - F/u in orthopedic outpatient clinic at 2 weeks post-op - WBAT - PT/OT progress as tolerated - PO diet as tolerated - Pain medication with PO [place] 5-325mg 1-2 every 4-6 PRN as tolerated - Hgb 8.7, medicine transfused 2 units on 04/02, continue to monitor - VTE ppx continue lovenox daily 40mg SQ until 4 weeks post-op, then begin daily 325 mg ASA for 2 weeks - Dressing changes every 3 days until f/u
--- NOTE | 2017-04-04 09:30 | DS ---
(1) Closed intertrochanteric fracture of left hip Problem: Acute (2) Acute blood loss as cause of postoperative anemia Problem: Acute Description of Stay: ADMISSION DATE: 03/31/2017 DISCHARGE DATE: 04/04/2017 ADMISSION HPI by ORTEGA Garcia: 86 years old WF adm to the hospital from ER with reports of left hip pain s/p mechanical fall at home. She was transferred from [facility] due to need for orthopedic service. On X-ray hip: Acute comminuted and mild- moderate displaced interrochanteric fracture of the proximal left femur. osteopenia with very mild OA changes at both hip. PMH osteopenia, osteoarthritis, hypertension, sleep apnea,diabetes, gout, lipoma, peripheral neuropathy and hyperlipidemia.Per daughter pt was going to the door when she slipped on the floor and hit her left hip. pt was unable to stand or get to the door so EMS was called and brought pt to outside facility. pt denies dizziness, headaches, head injury or LOC, No chest pain, palpitation, shortness of breath or weakness prior to and after incident. Pt lives alone therefore, Daughter considering [facility] for rehab upon discharge. Plan of care discussed with pt and daughter they verbalized understanding and agrees. HOSPITAL COURSE: The patient is an 86-year-old female who presented to the emergency department in [place] on 03/31/2017 after having a mechanical fall at her home. While in the emergency department in [place], she was found to have an acute comminuted mild to moderately displaced intertrochanteric fracture of the proximal left femur. The patient was transferred to [facility] for orthopedic surgery. The patient underwent a closed reduction cephalo-medullary fixation of the left intertrochanteric femur fracture on 04/01/[address] Sae Abad. The patient had acute postoperative blood loss anemia and was transfused 2 units of packed red blood cells on 04/02/2017. The patient was discharged in stable condition to [facility] for ongoing physical therapy and occupational therapy evaluation and treatment. ORTHOPEDIC INSTRUCTIONS/RECOMMENDATIONS: -WBAT -PT/OT progress as tolerated -VTE ppx continue lovenox daily 40mg SQ until 4 weeks post-op, then begin daily 325 mg ASA for 2 weeks -Dressing changes every 3 days until f/u FOLLOW-UP APPOINTMENTS: -Orthopedic physician, Dr. Abad, in 2 weeks -PCP, Dr. Pinto, will follow the patient while she is at [facility] NEW OR CHANGED MEDICATIONS: -Lovenox 40mg subcutaneously Q24H. STOP DATE: 04/30/2017 -Aspirin 325mg PO daily. START DATE: 04/30/2017. STOP DATE: 05/14/2017. -Aspirin 81mg PO daily. START DATE: 05/14/2017. -Ferrous sulfate 325mg PO BID with meals -Hydrocodone-APAP 5-325mg 1-2 tabs Q6H PRN pain (patient discharged with a written prescription for #50 with no refills) -Senna-S 2 tabs PO at bedtime DISCONTINUED MEDICATIONS: None RADIOLOGY REPORTS: Left hip and pelvis x-ray on 04/01/2017 showed: A total of 95 seconds of fluoroscopy time were used in order to aid in a hip fracture fixation. Images demonstrate surgical hardware through the hip. Procedures Performed: see notes below List Procedures: Operative Report - Dictated Report Narrative: Date: 04/01/2017 Surgeon: Sae Abad M.D. Violin Maker Hand: Kevin Holt PA-C Preoperative diagnosis: Left Intertrochanteric femur fracture Postoperative diagnosis: Left Intertrochanteric femur fracture Operations and procedures: 1. Closed reduction, cephalo-medullary fixation left intertrochanteric femur fracture 2. Intraoperative interpretation of radiographs Anesthesia: Spinal Specimens: None Estimated blood loss: 250 Milliliters Retained implants: [employer] Trigen InterTAN 130 degree size 11.5 mm by 18 centimeter nail with 100 millimeter lag screw and 95 millimeter compression screw, with distal locking screw Complications: None Indications for procedure: Leyla is a 86-year-old female who lives independently and who injured the left leg after a trip and fall from standing height in her home. They were admitted to the hospital after being evaluated in the emergency department. Once the medical provider felt that they were stable for surgical treatment, the risks and benefits alternatives were discussed. The risks of , blood clots, bleeding, infection, nerve/tendon/blood vessel injury, malunion, nonunion , failure of implants, painful implants, arthrosis, and need for additional procedures were discussed. The extremity was marked and consent was obtained on the floor. Procedure: After marking the operative extremity on the floor, the patient was taken to the operating room. A timeout was performed. IV antibiotics consisting of 2 g of Ancef were administered. A spinal anesthetic was induced by anesthesia, and the patient was then placed onto a fracture table with a well-padded perineal post. The non-operative leg was placed in a well-padded well leg weber in lithotomy position with an SCD on the leg. The operative leg was placed in a well-padded traction boot. Longitudinal traction, internal rotation, flexion, and adduction were utilized in order to reduce the fracture. Preliminary images were attained utilizing C-arm in both the AP and lateral views. This confirmed that we had obtained adequate visualization of the fracture as well as reduction. Next the hip was then prepped and draped in a standard sterile fashion. Next, the guidewire was placed percutaneously proximal to the greater trochanter to nima a starting point at the tip of the greater trochanter centered on the lateral view. This was advanced down to the level below the lesser trochanter. A scalpel was utilized to dissect down to the greater trochanter in order to lace the soft tissue protector down to bone. The entry reamer was then advanced down the proximal femur to the level of the lesser trochanter. The above nail was then selected and impacted into place. The outrigger was utilized in order to confirm the appropriate depth of the nail. Using the alignment device on the outrigger, a herminia incision was made over the lateral femur. Sharp dissection was carried through the iliotibial band down to the proximal femur. The guidewire was was placed into the femoral head in a center center position on AP and lateral views. A tip apex distance less than 25 mm combined was obtained. Once we felt that we had placed the guidewire in the appropriate position, it was measured. Next the compression screw entry drill was advanced through the lateral cortex. This was then drilled down to the appropriate depth for the compression screw, again confirming that we are within the confines the bone. The derotational bar was then placed and the lag screw was drilled to the appropriate depth. The lag screw was then secured in place ensuring that we were within the confines of the bone. The compression screw was then inserted allowing for compression while releasing the traction on the leg. Using C-arm this was visualized to allow for compression across the fracture site. Once it was felt we had adequately stabilized the intertrochanteric fracture, the distal interlocking screw was placed in a static position confirmed to be the appropriate length and within the nail on both AP and lateral views. The nail was secured allowing for controlled compression and the outrigger was removed. The wounds were then thoroughly irrigated. Final images were obtained. The hip was placed through range of motion and showed no crepitance. The deep fascia was closed with 0 Vicryl, the subcutaneous tissue with 3-0 Vicryl, and the skin was closed with maximino. Sterile dressings of Xeroform, 4 x 4s, and tegaderm were applied. All sponge, sharp, and instrument counts were correct prior to closing the wounds. The patient was then awoken and transferred to the postanesthesia care unit in stable condition. Discharge Disposition: [place] Disposition: Other health care facility Condition: Stable Discharge Activity: Activity as tolerated, Weight bearing - WBAT Discharge Diet: Consistent carbs Alf Therapy: Physicial Therapy, Occupation Therapy Referrals: Pérez Richmond MD [Primary Care Provider] - Problem Oriented Discharge Instructions to Patient/Family: Open Reduction and Internal Fixation for Hip Fracture, Care After, Hip Fracture Additional Patient Instructions (free text): Follow up with Dr. Abad 04/18 at 2:15. Prescriptions (Any new or edited meds): Acetaminophen [Tylenol] 1,000 mg PO Q6H PRN #50 tablet PRN Reason: Mild Pain Aspirin 325 mg PO DAILY #14 tablet Enoxaparin Sodium [Lovenox] 40 mg SC Q24H #28 disp.syrin Ferrous Sulfate 325 mg PO BIDWM #60 tablet HYDROcodone/ACETAMINOPHEN [[place] 5-325] 1 - 2 tab PO Q6H PRN #50 tablet PRN Reason: Moderate Pain Sennosides/Docusate Sodium [Senokot-S] 2 tab PO HS #60 tablet Complete Home Medications List: Complete Home Medication List: Alprazolam [Xanax] 0.25 mg PO QID PRN 03/31/17 Aspirin 81 mg PO DAILY 03/31/17 Atorvastatin Calcium 20 mg PO HS 03/31/17 Chlorthalidone [Hygroton] 12.5 mg PO DAILY 03/31/17 Glipizide 5 mg PO HS 03/31/17 Metoprolol Tartrate 50 mg PO HS 03/31/17 Metoprolol Tartrate 100 mg PO DAILY 03/31/17 glipiZIDE [Glipizide] 10 mg PO QAM 03/31/17 metFORMIN HCL [Glucophage] 500 mg PO BIDWM 03/31/17 Acetaminophen [Tylenol] 1,000 mg PO Q6H PRN #50 tablet 04/04/17 Aspirin 325 mg PO DAILY #14 tablet 04/04/17 Enoxaparin Sodium [Lovenox] 40 mg SC Q24H #28 disp.syrin 04/04/17 Ferrous Sulfate 325 mg PO BIDWM #60 tablet 04/04/17 HYDROcodone/ACETAMINOPHEN [[place] 5-325] 1 - 2 tab PO Q6H PRN #50 tablet Sennosides/Docusate Sodium [Senokot-S] 2 tab PO HS #60 tablet 04/04/17
== END 2017-04-04 11:20 | DRG 481 ==
LOC: ER 20:13 → MS 21:41 → OBSVTOIN 21:57
PROVIDERS: ADMIT Nurse Practitioner; ATTEND Internal Medicine
PROC: 0QS706Z Reposition Left Upper Femur with Intramedullary Internal Fixation Device, Open Approach (ICD-10-PCS; principal; 2017-04-01 08:00)
PROC: 30263N1 (ICD-10-PCS; 2017-04-02)
DX: S72.142A Displaced intertrochanteric fracture of left femur, initial encounter for closed fracture (principal); D62 Acute posthemorrhagic anemia; W01.0XXA Fall on same level from slipping, tripping and stumbling without subsequent striking against object, initial encounter; Z91.81 History of falling; Y92.008 Other place in unspecified non-institutional (private) residence as the place of occurrence of the external cause; D64.9 Anemia, unspecified; E11.40 Type 2 diabetes mellitus with diabetic neuropathy, unspecified; I10 Essential (primary) hypertension; E78.5 Hyperlipidemia, unspecified; Z85.3 Personal history of malignant neoplasm of breast; Z90.13 Acquired absence of bilateral breasts and nipples; Z79.82 Long term (current) use of aspirin; Z79.84 Long term (current) use of oral hypoglycemic drugs
CPT/HCPCS: 27245; 36415; 73502; 76000; 80048; 85014; 85018; 85027; 86850; 86900; 93005; 94660; 97110; 97116; 97163; 97166; 97530; 97535; 99285; P9016